=== PATIENT | female | born 1985 | race African-American/Black ===

== ENCOUNTER 2024-08-15 17:13 | Emergency (ER) | payer SELFPAY ==
[2024-08-15] VITALS (7 sets, daily range): BP systolic 102–124; BP diastolic 66–78; BMI 26.8
[2024-08-15 17:50] LABS: % Basophils 0.7 % (0-2); % Eosinophils 0.5 % (0-6); % Immature Granulocytes 0.3 % (0-0.5); % Lymphocytes 47.5 % (20.5-51.1); % Monocytes 10.6 % (1.7-9.3); % Neutrophils 40.4 % (42.2-75.2); Absolute Lymphocytes 2.7 10^3/uL (1.2-3.4); Absolute Monocytes 0.6 10^3/uL (0.1-0.6); Absolute Neutrophils 2.3 10^3/uL (1.4-6.5); Hematocrit 38.6 % (37.0-47.0); Hemoglobin 12.9 g/dL (12.0-16.0); Mean Corp Hgb Conc. 33.4 g/dL (33.0-37.0); Mean Corpuscular Hgb 27.9 pg (27.0-31.0); Mean Corpuscular Volume 83.4 fL (81.0-99.0); Mean Platelet Volume 8.6 fL (7.4-10.4); Nucleated Red Blood Cells % 0 %; Platelet Count 335 10^3/uL (130-400); Red Blood Cell Count 4.63 10^6/uL (4.20-5.40); White Blood Cell Count 5.7 10^3/uL (4.8-10.8)
[2024-08-15 17:53] LABS: ALT (SGPT) 15 U/L (0-35); AST (SGOT) 18 U/L (14-36); Albumin 4.8 g/dl (3.5-5.0); Alkaline Phosphatase 53 U/L (38-126); Blood Urea Nitrogen 6 mg/dl (7-17); Calcium 10.3 mg/dl (8.4-10.2); Carbon Dioxide 23 mmol/L (22-30); Chloride 109 mmol/L (98-107); Glucose 96 mg/dl (70-99); Potassium 3.8 mmol/L (3.5-5.1); Sodium 138 mmol/L (135-145); Total Bilirubin 0.6 mg/dl (0.2-1.3); Total Protein 7.7 g/dl (6.3-8.2); eGFR > 60.00
[2024-08-15 18:03] LABS: Troponin I < 0.012 ng/ml
--- NOTE | 2024-08-15 20:50 | ED.GENMED ---
History of Present Illness
General
Chief Complaint: Chest Pain
Source: patient
Time Seen by Provider: 08/15/24 19:22
History of Present Illness
History of Present Illness:
39-year-old female presents to the emergency room complaining of right sided chest discomfort that radiates to her shoulder and perhaps a mild headache. Patient was at work when the discomfort began. 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
office. She was not doing any sort of exertion at the time. She states the pain is worse with taking deep breaths. She denies feeling short of breath. She did not take anything for the pain. Patient does get headaches from time to time.
Patient has a history of HIV but her viral load is undetectable. She is now receiving an injection every couple months to manage her HIV. Patient denies any recent travel or periods of immobilization. She occasionally smokes marijuana but is not
smoke on a daily basis she does not smoke tobacco cigarettes. She denies any fever or chills. She denies cough or sore throat though she has had some mild postnasal drip which she relates to seasonal allergies.
Phy Exam
Physical Exam
Physical Exam:
General: Awake, Alert, Oriented X3. No acute distress.
Vitals: unremarkable
Head: Atraumatic
Eyes: Pupils equal, EOMI
Throat: Airway intact, no exudates
Neck: Trachea midline
Chest: No crepitance, no significant tenderness to palpation
Lungs: Clear and equal b/l
Heart: Regular rate, no murmurs
Abd: Soft, Nontender, No pulsatile mass
Neuro: Nonfocal
Skin: Warm, dry, no rash
Extremities: pulses equal b/l, no edema
Scores
Heart Score for Chest Pain Patients
STEMI patient?: No
History: Slightly or Non-Suspicious
ECG: Normal
Age: </= 45 years
Risk Factors: No Risk Factors
Troponin: </= Normal Limit
Heart Score for Chest Pain Patients: 0
Heart Score Risk: 2.5% MACE over next 6 weeks
Course
Orders/Labs/Results
Orders:
Orders
08/15/24 17:14
Electrocardiogram (*1) Urgent
Reason for Study: Chest Pain
EKG- Treatment ONCE
08/15/24 17:30
Complete Blood Count/With Diff Urgent
Comprehensive Metabolic Panel Urgent
Troponin I Urgent
08/15/24 20:49
Ketorolac [Toradol] 15 mg IV NOW STA
08/15/24 21:04
D-Dimer Urgent
Troponin I Urgent
08/15/24 22:17
CR Chest - 2 Views Urgent
Comment:
Reason For Exam: chest pain
Abnormal Lab Results
08/15/24
17:30
Neutrophils % 40.4 L %
(42.2-75.2)
Monocytes % 10.6 H %
(1.7-9.3)
Chloride 109 H mmol/L
(98-107)
BUN 6 L mg/dl
(7-17)
Calcium 10.3 H mg/dl
(8.4-10.2)
08/15/24 17:30
08/15/24 17:30
Vital Signs
Initial and Last Documented VS:
Initial Vital Signs
Temp Pulse Resp BP Pulse Ox
98.3 F 83 16 124/72 100
08/15/24 17:22 08/15/24 17:22 08/15/24 17:22 08/15/24 17:22 08/15/24 17:22
Last Documented Vital Signs
Temp Pulse Resp BP Pulse Ox
98.2 F 59 17 102/66 99
08/15/24 18:00 08/15/24 23:30 08/15/24 23:30 08/15/24 23:00 08/15/24 23:30
MDM/Problems Addressed
Differential Diagnosis Includes:
Musculoskeletal pain, angina, PE, pneumothorax
MDM/Problems Addressed:
Patient presents with right-sided chest pain. Troponins negative x 2. EKG shows no acute ischemic changes. D-dimer is negative. Chest x-ray similarly unremarkable. No evidence for an unstable process. Suspect musculoskeletal pain. Patient
stable for discharge home.
*Radiology
Radiology exam reviewed: preliminary read by ED provider (No acute abnormality noted of I reviewed the chest x-ray)
*Pulse Oximetry
SaO2: 100
Oxygen Mode of Delivery: Room air
Patient hypoxic: no
*EKG
Interpreted by ED Provider?: Yes
Heart Rate: 67
Rate: normal
Rhythm: sinus
Upperco: normal axis
Interval: normal interval
QRS Pattern: normal QRS
Ischemia: no ischemia
*Computer Scientist Interpretation
Rate: normal
Interpretation: normal
Heart Rate: 67
Rhythm: sinus
*Critical Care Note
Total Time (30-74mins, 75-104mins- exclusive of procedures): Not Applicable
ED Attending Note
-
Portions of this chart may have been created with voice recognition software.� Occasional wrong word or��sound alike� substitutions may have occurred due to the inherent limitations of voice recognition software.
Discharge Plan
Departure
Patient Disposition: Home (Routine Discharge)
Date of Disposition: 08/15/24
Time of Disposition: 23:59
Patient with high blood pressure during this ER visit?: No
Condition: Good
Discharge Problem:
Chest pain
Instructions: Chest Pain PCP Follow Up
Referrals:
Jourdan Muñoz MD [Family Provider]
Interventions
Interventions:
*Risk Screen - Suicide Last Done: 08/15/24 17:22
*General Assessment Last Done: 08/16/24 00:28
*Neglect/Abuse Screening Last Done: 08/15/24 17:22
*ED- Fall Risk Assessment Last Done: 08/16/24 00:28
*ED COVID-19 Vaccine History Last Done: 08/16/24 00:28
*Nursing Disposition Last Done: 08/16/24 00:28
ED- Cardiac Assessment Last Done: 08/15/24 19:26
Discharge Date and Time
Discharge Date/Time: 08/16/24 00:30
Print Language: HONDURAN
[2024-08-15] MEDS: TORADOL 15 MG IV (21:04)
[2024-08-15 21:39] LABS: Troponin I < 0.012 ng/ml
[2024-08-15 21:58] LABS: D-Dimer < 0.27 ug/mlFEU (0.00-0.50)
== END 2024-08-16 00:30 | disposition home or self-care (01) ==
LOC: EMR 17:13
PROVIDERS: Student in an Organized Health Care Education/Training Program; EMERGENCY PHYSICIAN Emergency Medicine; FAMILY PHYSICIAN Internal Medicine Infectious Disease
DX: R07.89 Other chest pain (principal); Z21 Asymptomatic human immunodeficiency virus [HIV] infection status
CPT/HCPCS: 99285; 96374; 71046; 80053; 84484; 85025; 85379; 93005